=== PATIENT | female | born 1970 | race Caucasian/White ===

== ENCOUNTER 2017-12-06 21:10 | Inpatient (IN) ==
--- NOTE | 2017-12-06 23:14 | Internal Med History&Physical ---
Date of Encounter: 12/07/17 Time of Encounter: 02:20 Internal Medicine - H&P: HPI Chief complaint: DKA Admitted From: Hospital to Hospital Transfer Plans for Post Hospital Care: Home History of present illness: Ms. Wu is a 47 year old female Patient presented to [facility] for elevated blood sugar and nausea. Patient not responding to my questions, thus history obtained from ER report. She at the time of her presentation could not state whether she took her insulin, or if she had eaten. She has had several episodes of DKA, and was hyperventilating during the examination. Lab work showed a blood sugar of 382, lactic acid of 1.4 , and anion gap of 321. VBG showed a pH of 7.1. WBCs were also elevated, and she met SIRS criteria for respiratory rate, heart rate, elevated white count. Blood cultures were drawn, and she was started on vancomycin and ceftriaxone. Chest x-ray showed no consolidations, and UA was negative for nitrites and LEs. She was transferred to [facility] for further care in the ICU. Upon my assessment, patient is tearful, told the nurse prior to my arrival that she was struggling emotionally with bad news about her mother's health. She declined to answer my questions. Appeared in no acute distress. Resting in the hospital bed. Past Med Surg Social Fam HX - Past Medical History Medical history: diabetes, GERD, kidney stones, migraine Additional medical history: syncopal episodes Psychiatric history: anxiety, depression, panic disorder - Past Surgical History Surgical History: , orthopedic, other, other Additional surgical history: right ovary removal. right ankle sx. partial hysterectomy. eye surgery - Social History Smoking Status: Former smoker Smokeless Tobacco Status: No Alcohol use: none Drug use: none Internal Medicine - H&P: Meds Gabapentin [Neurontin] 100 mg PO TID 10/26/14 [History] Insulin ASPART [NovoLOG] 15 unit SQ TIDWM 10/26/14 [History] lamoTRIgine [Lamotrigine] 25 mg PO DAILY 09/23/16 [History] Insulin Glargine,Hum.rec.anlog [Basaglar Kwikpen U-100] 40 units SQ DAILY [History] 3 Allergy/AdvReac Type Severity Reaction Status Date / Time atropine [From ] Allergy Difficulty Verified 12/06/17 19:10 Breathing azithromycin Allergy Swelling Verified 12/06/17 19:10 of Lip/Tongue/Throat Erythromycin Base Allergy Swelling Verified 12/06/17 19:10 of Lip/Tongue/Throat Hyoscyamine [From ] Allergy Difficulty Verified 12/06/17 19:10 Breathing Penicillins [PCN] Allergy Difficulty Verified 12/06/17 19:10 Breathing phenobarbital [From ] Allergy Difficulty Verified 12/06/17 19:10 Breathing promethazine [From Phenergan] Allergy Difficulty Verified 12/06/17 19:10 Breathing scopolamine [From ] Allergy Difficulty Verified 12/06/17 19:10 Breathing aspirin [ASA] AdvReac See Verified 12/06/17 19:10 Comments All Systems PM: A 10-system review of systems was performed and is negative for pertinent findings except as documented above in the HPI. - Constitutional Vitals: Temp Pulse Resp BP Pulse Ox 98.3 F 102 20 136/79 99 12/06/17 23:00 12/06/17 23:00 12/06/17 23:00 12/06/17 23:00 12/06/17 23:00 General appearance: Present: cooperative, no acute distress. Absent: answers questions appropriately Exam: cooperative with exam, but did not answer questions. - Head Head exam: Present: normal inspection - Eye Eye exam: Present: EOMI, normal appearance - Neck Neck exam general surgery: Absent: tenderness - Respiratory Respiratory exam: Present: CTAB. Absent: decreased breath sounds, respiratory distress, wheezes - Cardiovascular Cardiovascular exam: Present: RRR. Absent: diastolic murmur, systolic murmur - GI/Abdominal GI/Abdominal exam: Present: normal bowel sounds, soft. Absent: tenderness - Extremities Exam Extremities exam: Present: warm, radial pulses palpable and symmetrical. Absent : calf tenderness, pedal edema, tenderness - Neurological Exam Neurological exam: Present: no focal deficits, strengths equal and symetr throughout. Absent: motor sensory deficit, facial droop, speech deficit - Skin Skin exam: Present: dry, normal color, warm Internal Med - H&P Results - Labs CBC & Chem 7: 12/07/17 03:35 12/07/17 06:17 - Assessment and plan (1) DKA (diabetic ketoacidoses) Current Visit: Yes Status: Acute Assessment and plan: As evidenced by lab work from [facility]. Will initiate DKA protocol, monitor blood sugars. Will transition to Subq insulin when gap is closed. Continue to monitor. Qualifiers: Qualified Code(s): E10.10 - Type 1 diabetes mellitus with ketoacidosis without coma (2) Leukocytosis Current Visit: Yes Status: Acute Assessment and plan: Patient did meet SIRS criteria at [facility], with elevated heart rate and respiratory rate. Her WBC count was 32. Lactate was not elevated. No obvious source of infection at this time of skin, lung or urine. Patient not having diarrhea. Started on vanco and ceftriaxone. Blood cultures have been drawn. Vitals have improved since arrival. WBC elevation could be explained by DKA, but likely not this high. No fevers noted. Continue antibiotics for now, follow up blood cultures when available. Continue to monitor for worsening signs of infection. Qualifiers: Leukocytosis type: unspecified Qualified Code(s): D72.829 - Elevated white blood cell count, unspecified (3) Vomiting Current Visit: No Status: Resolved Assessment and plan: Secondary to DKA Zofran PRN Qualifiers: Vomiting type: unspecified Vomiting Intractability: non-intractable Nausea presence: with nausea Qualified Code(s): R11.2 - Nausea with vomiting, unspecified (4) DVT prophylaxis Current Visit: Yes Status: Acute Assessment and plan: Heparin subq - Time Spent With Patient Total time spent is greater than 50% in coordination of care (as documented) at patient's floor/unit and/or counseling patient: Greater than 35 minutes
[2017-12-06 23:46] LABS: VBG HCO3 7 mEq/L (21-27); VBG PCO2 21 mmHg (41-51); VBG PH 7.13 pH Units (7.32-7.42); VBG PO2 136 mmHg (25-50)
[2017-12-07 00:02] LABS: Alanine Aminotransferase 9 Units/L (7-52); Albumin 4.3 g/dL (3.5-5.7); Albumin/Globulin Ratio 1.7 (1.1-2.2); Alkaline Phosphatase 59 Units/L (34-104); Aspartate Amino Transferase 13 Units/L (13-39); BUN/Creatinine Ratio 17 (6-26); Bilirubin,Total 0.3 mg/dL (0.3-1.0); Blood Urea Nitrogen 19 mg/dL (6-20); Calcium 7.9 mg/dL (8.6-10.3); Carbon Dioxide 7 mEq/L (23-29); Chloride 111 mEq/L (98-107); Globulin 2.6 g/dL (2.4-3.5); Glucose 176 mg/dL (70-105); Osmolality,Calculated 293 (280-300); Potassium 4.3 mEq/L (3.5-5.1); Sodium 138 mEq/L (136-145); Total Protein 6.9 g/dL (6.4-8.9); eGFR For Non-African Americans 53 (> 60)
[2017-12-07] MEDS ORDERED: Insulin Regular, Human 100 UNIT/ML IV PRN (00:40)
[2017-12-07] MEDS ORDERED: *HR* Dextrose 50 % in Water (Syg) 50 ML SYRINGE IVP PRN (00:40)
[2017-12-07] MEDS ORDERED: D5% in 0.45% NACL w KCl 20 MEQ/1,000 ML MLS IVC ONE (00:46)
[2017-12-07] MEDS: D5% in 0.45% NACL w KCl 20 MEQ/1,000 ML MLS IVC PRN ×2 (00:50→05:16)
[2017-12-07] MEDS ORDERED: Ondansetron 4 MG/2 ML VIAL ONE (02:21)
[2017-12-07] MEDS: Ondansetron 4 MG/2 ML VIAL IVP PRN ×5 (02:29→20:26)
[2017-12-07] MEDS ORDERED: Naloxone 0.4 MG/ML INJ IVP PRN (02:38)
[2017-12-07] MEDS ORDERED: Insulin Human Regular 100 UNIT in 0.9 % Sodium Chloride 100 ML IVC SCH (02:45)
[2017-12-07] MEDS: Insulin Human Regular 100 UNIT in 0.9 % Sodium Chloride 100 ML IVC SCH ×2 (03:00→04:11)
[2017-12-07 03:45] LABS: Mean Platelet Volume 10.8 fL (9.4-12.4); Monocytes % 5.4 %
[2017-12-07 03:47] LABS: Basophils % 0.2 %; Hematocrit 39.6 % (35.3-44.9); Hemoglobin 13.2 g/dL (11.5-15.4); Lymphocytes # 1.2 K/mcL (0.6-4.6); Lymphocytes % 4.8 %; Mean Corpuscular HGB Conc 33.3 g/dL (31.6-35.5); Mean Corpuscular Hemoglobin 30.1 pg (28.0-33.3); Mean Corpuscular Volume 90.2 fL (83.0-100.0); Monocytes # 1.4 K/mcL (0.0-1.3); Neutrophils # 22.7 K/mcL (1.6-8.9); Platelet Count 203 K/mcL (140-400); Red Blood Count 4.39 M/mcL (3.82-4.97); Red Cell Distribution Width 13.4 % (11.5-14.5); Segmented Neutrophils % 88.6 %
[2017-12-07 03:49] LABS: Basophils # 0.1 K/mcL (0.0-0.2)
[2017-12-07 04:07] LABS: BUN/Creatinine Ratio 17 (6-26); Blood Urea Nitrogen 14 mg/dL (6-20); Calcium 7.7 mg/dL (8.6-10.3); Carbon Dioxide 9 mEq/L (23-29); Chloride 114 mEq/L (98-107); Glucose 213 mg/dL (70-105); Osmolality,Calculated 291 (280-300); Potassium 3.7 mEq/L (3.5-5.1); Sodium 137 mEq/L (136-145); eGFR For Non-African Americans > 60 (> 60)
[2017-12-07 04:19] LABS: Platelet Estimate Normal (Normal)
[2017-12-07] MEDS: *HR* Heparin 5,000 UNIT/ML VIAL SQ SCH ×2 (05:16→17:43)
[2017-12-07 07:08] LABS: BUN/Creatinine Ratio 15 (6-26); Blood Urea Nitrogen 12 mg/dL (6-20); Calcium 8.1 mg/dL (8.6-10.3); Carbon Dioxide 15 mEq/L (23-29); Chloride 114 mEq/L (98-107); Glucose 165 mg/dL (70-105); Osmolality,Calculated 287 (280-300); Potassium 3.3 mEq/L (3.5-5.1); Sodium 137 mEq/L (136-145); eGFR For Non-African Americans > 60 (> 60)
[2017-12-07] MEDS ORDERED: Aminoglycoside Consult 1 EACH MC ONE (08:54)
[2017-12-07] MEDS ORDERED: cefTRIAXone 1,000 MG in Water for inj. (sterile) 20 ML 10 ML IVP SCH (09:00)
[2017-12-07 10:17] LABS: BUN/Creatinine Ratio 12 (6-26); Blood Urea Nitrogen 9 mg/dL (6-20); Calcium 8.1 mg/dL (8.6-10.3); Carbon Dioxide 15 mEq/L (23-29); Chloride 113 mEq/L (98-107); Glucose 86 mg/dL (70-105); Osmolality,Calculated 284 (280-300); Potassium 3.4 mEq/L (3.5-5.1); Sodium 138 mEq/L (136-145); eGFR For Non-African Americans > 60 (> 60)
[2017-12-07] MEDS: Insulin LISPRO 300 UNITS/3 ML VIAL SQ SCH ×2 (11:34→16:54)
[2017-12-07] MEDS: Insulin DETEMIR 100 UNIT/ML X5UNITS SQ SCH ×2 (12:52→19:57)
--- NOTE | 2017-12-07 13:00 | Internal Med Progress Note ---
Hospitalist Progress Note - Encounter Date of Encounter: 12/07/17 Time of Encounter: 12:57 - Subjective Interval History: Patient feeling better today. No abdominal pain or chest pain. Complains only of nausea at this time. Does feel hungry. No fever or chills reported overnight. - Exam Vitals: Temp Pulse Resp BP Pulse Ox 97.1 F L 87 18 140/71 100 12/07/17 11:30 12/07/17 12:00 12/07/17 11:30 12/07/17 11:30 12/07/17 11:30 Exam: General: Patient is alert, no acute distress, oriented x 3 Respiratory: Good respiratory effort. Normal breath sounds. No wheezing or crackles. Cardiovascular: Regular rate and rhythm. s1 and s2 normal No clicks, rubs, gallops, or murmurs. No pedal edema Abdomen: Abdomen is soft, nontender. Bowel sounds are present Musculoskeletal: Spontaneously moving all extremities Skin: warm, dry, intact. - Assessment and Plan (1) DKA (diabetic ketoacidoses) Current Visit: Yes Status: Resolved Assessment and Plan: Anion gap has closed. Bicarbonate levels have also improved. We will transition to subcutaneous insulin. Stop DKA protocol. Diabetic diet. Continue to monitor blood sugars closely. Will monitor for another 24 hours. If patient continues to do well and blood sugars are controlled, plan on discharge tomorrow. (2) Leukocytosis Current Visit: Yes Status: Acute Assessment and Plan: Improving. Likely reactive due to diabetic ketoacidosis and possible gastroenteritis. (3) DM type 1 (diabetes mellitus, type 1) Current Visit: Yes Status: Chronic Assessment and Plan: Place patient on diabetic diet and moderate sliding scale. (4) Vomiting Current Visit: Yes Status: Resolved Assessment and Plan: Vomiting has resolved. Patient still has some nausea. Treat symptomatically. - Time Spent with Patient Total time spent is greater than 50% in coordination of care (as documented) at patient's floor/unit and/or counseling patient: Plan of Care Discussed with: patient Internal Medicine: Result - Labs CBC & Chem 7: 12/07/17 03:35 12/07/17 08:59 Labs: Short CBC 12/07/17 Range/Units 03:35 WBC 25.6 H (4.3-11.1) K/mcL Hgb 13.2 (11.5-15.4) g/dL Hct 39.6 (35.3-44.9) % Plt Count 203 (140-400) K/mcL Neutrophils # 22.7 H (1.6-8.9) K/mcL BMP 12/06/17 12/07/17 12/07/17 23:26 03:35 06:17 Sodium 138 137 137 Potassium 4.3 3.7 3.3 L Chloride 111 H 114 H 114 H Carbon Dioxide 7 L* 9 L* 15 L BUN 19 14 12 Creatinine 1.10 0.83 0.80 Glucose 176 H 213 H 165 H Calcium 7.9 L 7.7 L 8.1 L 12/07/17 08:59 Sodium 138 Potassium 3.4 L Chloride 113 H Carbon Dioxide 15 L BUN 9 Creatinine 0.78 Glucose 86 Calcium 8.1 L Liver Function 12/06/17 Range/Units 23:26 Total Bilirubin 0.3 (0.3-1.0) mg/dL AST 13 (13-39) Units/L ALT 9 (7-52) Units/L Alkaline Phosphatase 59 (34-104) Units/L Albumin 4.3 (3.5-5.7) g/dL Consult Discharge Plan - Plan Referrals: Oni Mclain, PROFESSIONAL DEVELOPMENT INSTRUCTOR [Primary Care Provider] - (1) DKA (diabetic ketoacidoses) Qualifiers: Diabetes mellitus type: type 1 Diabetes mellitus complication detail: without coma Qualified Code(s): E10.10 - Type 1 diabetes mellitus with ketoacidosis without coma (2) Leukocytosis Qualifiers: Leukocytosis type: other Qualified Code(s): D72.828 - Other elevated white blood cell count (3) DM type 1 (diabetes mellitus, type 1) Qualifiers: Diabetes mellitus complication status: with hyperglycemia Qualified Code(s): E10.65 - Type 1 diabetes mellitus with hyperglycemia (4) Vomiting Qualifiers: Vomiting type: unspecified Vomiting Intractability: non-intractable Nausea presence: with nausea Qualified Code(s): R11.2 - Nausea with vomiting, unspecified
[2017-12-07] MEDS ORDERED: hydrOXYzine pamoate 25 MG CAPSULE PO PRN (18:49)
[2017-12-07] MEDS: Gabapentin 100 MG CAPSULE PO SCH (19:58)
[2017-12-07] MEDS ORDERED: Insulin LISPRO 300 UNITS/3 ML VIAL SQ SCH (21:00)
[2017-12-08] MEDS ORDERED: Acetaminophen 325 MG TABLET PO PRN (02:10)
[2017-12-08 04:15] LABS: Basophils % 0.2 %; Eosinophils % 0.2 %; Hematocrit 37.6 % (35.3-44.9); Immature Granulocytes % 0.3 % (0-4); Lymphocytes # 1.5 K/mcL (0.6-4.6); Lymphocytes % 12.7 %; Mean Corpuscular HGB Conc 34.6 g/dL (31.6-35.5); Mean Corpuscular Hemoglobin 30.1 pg (28.0-33.3); Mean Platelet Volume 10.9 fL (9.4-12.4); Monocytes # 0.8 K/mcL (0.0-1.3); Monocytes % 6.5 %; Neutrophils # 9.3 K/mcL (1.6-8.9); Platelet Count 196 K/mcL (140-400); Red Blood Count 4.32 M/mcL (3.82-4.97); Red Cell Distribution Width 13.8 % (11.5-14.5); Segmented Neutrophils % 80.1 %
[2017-12-08 04:34] LABS: BUN/Creatinine Ratio 9 (6-26); Blood Urea Nitrogen 6 mg/dL (6-20); Calcium 8.5 mg/dL (8.6-10.3); Carbon Dioxide 18 mEq/L (23-29); Chloride 111 mEq/L (98-107); Glucose 169 mg/dL (70-105); Osmolality,Calculated 288 (280-300); Potassium 3.1 mEq/L (3.5-5.1); Sodium 138 mEq/L (136-145); eGFR For Non-African Americans > 60 (> 60)
[2017-12-08] MEDS: *HR* Heparin 5,000 UNIT/ML VIAL SQ SCH ×2 (06:18→18:21)
[2017-12-08] MEDS: Insulin LISPRO 300 UNITS/3 ML VIAL SQ SCH ×3 (08:09→18:28)
[2017-12-08] MEDS: Gabapentin 100 MG CAPSULE PO SCH ×3 (08:28→22:40)
[2017-12-08] MEDS: Ondansetron 4 MG/2 ML VIAL IVP PRN (08:28)
[2017-12-08] MEDS: lamoTRIgine 100 MG TABLET PO SCH (08:28)
[2017-12-08] MEDS ORDERED: Ringers Solution, Lactated 1,000 ML ONE ×2 (12:34→15:41)
[2017-12-08] MEDS ORDERED: Albumin Human 5% 25.0 GM/500 ML VIAL ONE (12:34)
--- NOTE | 2017-12-08 15:28 | Internal Med Progress Note ---
Hospitalist Progress Note - Encounter Date of Encounter: 12/08/17 Time of Encounter: 15:28 - Subjective Interval History: I evaluated patient earlier today. She was complaining of nausea and vomiting and was not feeling well at all. She also complained of some abdominal pain. Had been tolerating diet well yesterday but has been throwing up since this morning. No Hematemesis or melena. - Exam Vitals: Temp Pulse Resp BP Pulse Ox 99.2 F 81 16 164/87 98 12/08/17 08:00 12/08/17 08:00 12/08/17 08:00 12/08/17 08:00 12/08/17 08:00 Exam: General: Patient is alert, moderate distress, oriented x 3 Respiratory: Good respiratory effort. Normal breath sounds. No wheezing or crackles. Cardiovascular: Regular rate and rhythm. s1 and s2 normal No clicks, rubs, gallops, or murmurs. No pedal edema Abdomen: Abdomen is soft, mildly tender in the epigastric region. Bowel sounds are present Musculoskeletal: Spontaneously moving all extremities Skin: warm, dry, intact. Neuro: Alert oriented x 3 normal cranial nerves, no focal deficits - Assessment and Plan (1) Abdominal pain Current Visit: Yes Status: Acute Assessment and Plan: Patient complaining of abdominal pain along with nausea and vomiting that worsened this morning. We will get CT scan of the abdomen and pelvis. Keep nothing by mouth for now. Treat nausea and vomiting symptomatically. (2) Vomiting Current Visit: Yes Status: Acute Assessment and Plan: Will treat with antiemetics. Keep nothing by mouth. Start IV fluids. (3) DKA (diabetic ketoacidoses) Current Visit: Yes Status: Resolved (4) Leukocytosis Current Visit: Yes Status: Acute Assessment and Plan: Resolved now. Etiology uncertain. Initially suspected of gastroenteritis. Could also be related to DKA. We will follow CT scan of the abdomen and pelvis results. (5) DM type 1 (diabetes mellitus, type 1) Current Visit: Yes Status: Chronic Assessment and Plan: Blood sugars are much better controlled currently. We will continue current insulin regimen every 6 hours based on blood sugars. DVT Prophylaxis: On subcutaneous heparin - Time Spent with Patient Total time spent is greater than 50% in coordination of care (as documented) at patient's floor/unit and/or counseling patient: Internal Medicine: Result - Labs CBC & Chem 7: 12/08/17 03:52 12/08/17 03:52 Labs: Short CBC 12/08/17 Range/Units 03:52 WBC 11.6 H D (4.3-11.1) K/mcL Hgb 13.0 (11.5-15.4) g/dL Hct 37.6 (35.3-44.9) % Plt Count 196 (140-400) K/mcL Neutrophils # 9.3 H (1.6-8.9) K/mcL BMP 12/08/17 03:52 Sodium 138 Potassium 3.1 L Chloride 111 H Carbon Dioxide 18 L BUN 6 Creatinine 0.68 Glucose 169 H Calcium 8.5 L Consult Discharge Plan - Plan Referrals: Oni cMlain, URBAN DESIGNER [Primary Care Provider] - (1) Abdominal pain Qualifiers: Abdominal location: epigastric Qualified Code(s): R10.13 - Epigastric pain (2) Vomiting Qualifiers: Vomiting type: unspecified Vomiting Intractability: non-intractable Nausea presence: with nausea Qualified Code(s): R11.2 - Nausea with vomiting, unspecified (3) DKA (diabetic ketoacidoses) Qualifiers: Diabetes mellitus type: type 1 Diabetes mellitus complication detail: without coma Qualified Code(s): E10.10 - Type 1 diabetes mellitus with ketoacidosis without coma (4) Leukocytosis Qualifiers: Leukocytosis type: other Qualified Code(s): D72.828 - Other elevated white blood cell count (5) DM type 1 (diabetes mellitus, type 1) Qualifiers: Diabetes mellitus complication status: with hyperglycemia Qualified Code(s): E10.65 - Type 1 diabetes mellitus with hyperglycemia
[2017-12-08] MEDS ORDERED: Metoclopramide 10 MG/2 ML VIAL IVP PRN (15:38)
[2017-12-08] MEDS ORDERED: Ringers Solution, Lactated 1,000 ML IVC SCH (15:45)
[2017-12-08] MEDS: Pantoprazole 40 MG VIAL IVP SCH (18:20)
[2017-12-08] MEDS: Insulin DETEMIR 100 UNIT/ML X5UNITS SQ SCH (23:15)
[2017-12-09] MEDS: Insulin LISPRO 300 UNITS/3 ML VIAL SQ SCH ×2 (01:02→05:56)
[2017-12-09] MEDS: *HR* Heparin 5,000 UNIT/ML VIAL SQ SCH (05:44)
[2017-12-09] MEDS: Pantoprazole 40 MG VIAL IVP SCH (05:44)
[2017-12-09] MEDS ORDERED: D5% in Water 1,000 ML IVC PRN (08:43)
[2017-12-09] MEDS ORDERED: Dextrose Gel 15 GM/37.5 ML TUBE PO PRN (08:43)
[2017-12-09] MEDS ORDERED: *HR* Dextrose 50 % in Water (Syg) 50 ML SYRINGE IVP PRN (08:43)
[2017-12-09] MEDS: Gabapentin 100 MG CAPSULE PO SCH (09:26)
[2017-12-09] MEDS: lamoTRIgine 100 MG TABLET PO SCH (09:26)
[2017-12-09 10:02] VITALS: BP 168/83
[2017-12-09] MEDS ORDERED: Potassium Chloride Elixir 20 MEQ/15 ML UDC PO SCH (10:30)
[2017-12-09] MEDS ORDERED: Insulin LISPRO 300 UNITS/3 ML VIAL SQ SCH ×2 (11:30→21:00)
--- NOTE | 2017-12-09 11:53 | Discharge Summary ---
Date of Encounter: 12/09/17 Time of Encounter: 11:55 - Discharge Diagnosis (1) DKA (diabetic ketoacidoses) Priority: Primary Status: Acute Assessment and Plan: Ms. Wu is a 47 year old female. Patient presented to [facility] for elevated blood sugar and nausea. She at the time of her presentation could not state whether she took her insulin, or if she had eaten. She has had several episodes of DKA, and was hyperventilating during the examination. Lab work showed a blood sugar of 382, lactic acid of 1.4, and anion gap of 321. VBG showed a pH of 7.1. WBCs were also elevated, and she met SIRS criteria for respiratory rate , heart rate, elevated white count. Blood cultures were drawn, and she was started on vancomycin and ceftriaxone. She was assessed with DKA and SIRS r/o sepsis. She was started on an insulin drip and broad spectrum antibiotics. She had no clear source of infection and antibiotics were discontinued. She was also started on an insulin drip on admission which was successfully transitioned to subcutaneous insulin once her anion gap closed. She was discharged home in a stable condition. Qualifiers: Diabetes mellitus type: type 1 Diabetes mellitus complication detail: without coma Qualified Code(s): E10.10 - Type 1 diabetes mellitus with ketoacidosis without coma (2) DM type 1 (diabetes mellitus, type 1) Priority: Primary Status: Chronic Assessment and Plan: Blood sugars are much better controlled currently. We will continue current insulin regimen every 6 hours based on blood sugars. Qualifiers: Diabetes mellitus complication status: with hyperglycemia Qualified Code(s) : E10.65 - Type 1 diabetes mellitus with hyperglycemia (3) Vomiting Priority: Primary Status: Acute Qualifiers: Vomiting type: unspecified Vomiting Intractability: non-intractable Nausea presence: with nausea Qualified Code(s): R11.2 - Nausea with vomiting, unspecified (4) Leukocytosis Priority: Primary Status: Acute Qualifiers: Leukocytosis type: other Qualified Code(s): D72.828 - Other elevated white blood cell count (5) Abdominal pain Priority: Primary Status: Acute Qualifiers: Abdominal location: epigastric Qualified Code(s): R10.13 - Epigastric pain Hospital course: Ms. Wu is a 47 year old female - Time Spent with Patient Total time spent providing and/or coordinating discharge services: - Discharge Medications Home Medications: Insulin Glargine,Hum.rec.anlog [Basaglar Kwikpen U-100] 40 units SQ DAILY [History] Atorvastatin Calcium [Lipitor] 20 mg PO HS 12/07/17 [History] Gabapentin [Neurontin] 200 mg PO TID 12/07/17 [History] Insulin ASPART [NovoLOG] 15 units SQ TIDWM 12/07/17 [History] Pantoprazole Sodium [Protonix] 40 mg PO DAILY 12/07/17 [History] hydrOXYzine HCl [Hydroxyzine HCl] 25 mg PO Q8H PRN 12/07/17 [History] lamoTRIgine [Lamotrigine] 150 mg PO DAILY 12/07/17 [History] Allergies/Adverse Reactions: 3 Allergy/AdvReac Type Severity Reaction Status Date / Time atropine [From ] Allergy Difficulty Verified 12/06/17 19:10 Breathing azithromycin Allergy Swelling Verified 12/06/17 19:10 of Lip/Tongue/Throat Erythromycin Base Allergy Swelling Verified 12/06/17 19:10 of Lip/Tongue/Throat Hyoscyamine [From ] Allergy Difficulty Verified 12/06/17 19:10 Breathing Penicillins [PCN] Allergy Difficulty Verified 12/06/17 19:10 Breathing phenobarbital [From ] Allergy Difficulty Verified 12/06/17 19:10 Breathing promethazine [From Phenergan] Allergy Difficulty Verified 12/06/17 19:10 Breathing scopolamine [From ] Allergy Difficulty Verified 12/06/17 19:10 Breathing aspirin [ASA] AdvReac See Verified 12/06/17 19:10 Comments Date of admission: 12/06/17 22:43 Primary care physician: Oni Mclain CNP - Constitutional Vitals: Temp Pulse Resp BP Pulse Ox 98.8 F 87 16 168/83 98 12/09/17 10:00 12/09/17 10:00 12/09/17 10:00 12/09/17 10:00 12/09/17 10:00 General appearance: Present: cooperative, no acute distress. Absent: answers questions appropriately Exam: General: Patient is alert, moderate distress, oriented x 3 Respiratory: Good respiratory effort. Normal breath sounds. No wheezing or crackles. Cardiovascular: Regular rate and rhythm. s1 and s2 normal No clicks, rubs, gallops, or murmurs. No pedal edema Abdomen: Abdomen is soft, mildly tender in the epigastric region. Bowel sounds are present Musculoskeletal: Spontaneously moving all extremities Skin: warm, dry, intact. Neuro: Alert oriented x 3 normal cranial nerves, no focal deficits - Head Head exam: Present: atraumatic, normocephalic - Eye Eye exam: Present: PERRL, conjuntiva pink, sclera anicteric Pupils: Present: PERRL - Neck Neck exam general surgery: Present: supple, trachea midline. Absent: lymphadenopathy - Respiratory Respiratory exam: Present: CTAB. Absent: accessory muscle use, rales, rhonchi, wheezes - Cardiovascular Cardiovascular exam: Present: RRR, +S1, +S2. Absent: diastolic murmur, gallop, rubs, systolic murmur - GI/Abdominal GI/Abdominal exam: Present: normal bowel sounds, soft, no peritoneal signs. Absent: distended, tenderness - Extremities Exam Extremities exam: Present: warm, radial pulses palpable and symmetrical. Absent : calf tenderness, cyanotic, pedal edema - Neurological Exam Neurological exam: Present: CN II-XII intact, oriented X3, no focal deficits. Absent: pronater drift, facial droop, speech deficit - Skin Skin exam: Present: dry, intact - Patient Status Disposition: Home, Self-Care - Discharge Instructions Follow Up With: Oni Mclain CNP [Primary Care Provider] - 12/16/17 9:00 am
== END 2017-12-09 13:25 | disposition home or self-care (01) | DRG 420 ==
LOC: ICNU 22:43 → SUATTDRO 22:43 → 3ANU 12-08 19:30
PROVIDERS: ADMIT Pediatrics; ATTEND Internal Medicine

== ENCOUNTER 2017-12-12 15:57 | Inpatient (IN) ==
--- NOTE | 2017-12-12 18:35 | Internal Med History&Physical ---
Date of Encounter: 12/12/17 Time of Encounter: 18:33 Internal Medicine - H&P: HPI Chief complaint: Nausea, vomiting, malleus Admitted From: Home History of present illness: Ms. Wu is a 47-year-old female with a PMH of DMT1, multiple episodes of DKA, migraines, and nephrolithiasis who presented to [facility] emergency room with a chief complaint of nausea, vomiting, and malaise of one days duration. Patient called EMS, who brought her to the hospital. Patient reported that she had recently been discharged for DKA. She reported that she takes her insulin as prescribed, and took a total of 10 units prior to her arrival. Patient denied having any fever, chills, or night sweats. Upon arrival to [facility], patients vital signs were as follows: Temperature was 98.1, pulse was 109, respiratory rate was 23, blood pressure was 143/83, and O2 sat was 100. Laboratory analysis was significant for an elevated white count of 16.7 with left shift, a carbon dioxide of 9, glucose of 315, beta hydroxybutyric acid greater than 2. Urinalysis demonstrated a urine glucose of 500, urine ketones greater than 160, and a small amount of urine bilirubin. Venous blood gas demonstrated a pH of 7.02, PCO2 of 16, and PO2 of 157. Patient was given IV fluids, as well as an insulin drip. Patient was seen and examined at bedside. She states that she is feeling somewhat drowsy, but states that she feels much better than she did on arrival. She denies any nausea, vomiting, fever, chills, or abdominal pain. She admits to having some epigastric pain which she describes as reflux. She has no further complaints at this time. Past Med Surg Social Fam HX - Past Medical History Medical history: diabetes, GERD, kidney stones, migraine Additional medical history: syncopal episodes Psychiatric history: anxiety, depression, panic disorder - Past Surgical History Surgical History: , orthopedic, other, JOEL/BSO, other Additional surgical history: right ovary removed, right ankle plate/ reconstruction, tonsilectomy - Social History Smoking Status: Current some day smoker Smokeless Tobacco Status: No Alcohol use: none Drug use: none - Family History Mother Living Status: Still Living Hx Family Cancer: Yes (kidney/spine) Brother Living Status: Still Living Hx Family Cardiac Disorders: Yes ([place]) Grandfather Living Status: Hx Family Cancer: Yes (prostate) Internal Medicine - H&P: Meds Insulin Glargine,Hum.rec.anlog [Basaglar Kwikpen U-100] 40 units SQ DAILY [History] Atorvastatin Calcium [Lipitor] 20 mg PO HS 12/07/17 [History] Gabapentin [Neurontin] 200 mg PO TID 12/07/17 [History] Insulin ASPART [NovoLOG] 15 units SQ TIDWM 12/07/17 [History] Pantoprazole Sodium [Protonix] 40 mg PO DAILY 12/07/17 [History] hydrOXYzine HCl [Hydroxyzine HCl] 25 mg PO Q8H PRN 12/07/17 [History] lamoTRIgine [Lamotrigine] 150 mg PO DAILY 12/07/17 [History] 3 Allergy/AdvReac Type Severity Reaction Status Date / Time atropine [From ] Allergy Difficulty Verified 12/06/17 19:10 Breathing azithromycin Allergy Swelling Verified 12/06/17 19:10 of Lip/Tongue/Throat Erythromycin Base Allergy Swelling Verified 12/06/17 19:10 of Lip/Tongue/Throat Hyoscyamine [From ] Allergy Difficulty Verified 12/06/17 19:10 Breathing Penicillins [PCN] Allergy Difficulty Verified 12/06/17 19:10 Breathing phenobarbital [From ] Allergy Difficulty Verified 12/06/17 19:10 Breathing promethazine [From Phenergan] Allergy Difficulty Verified 12/06/17 19:10 Breathing scopolamine [From ] Allergy Difficulty Verified 12/06/17 19:10 Breathing aspirin [ASA] AdvReac See Verified 12/06/17 19:10 Comments All Systems PM: A 10-system review of systems was performed and is negative for pertinent findings except as documented above in the HPI. - Constitutional Constitutional: as per HPI, malaise, weakness, no anorexia, no chills, no fatigue, no falls, no night sweats, no weight gain, no weight loss - EENT Eyes: as per HPI, no loss of vision Ears: as per HPI Nose, mouth and throat: as per HPI - Breasts Breasts: as per HPI - Cardiovascular Cardiovascular ROS IM: as per HPI, no chest pain, no claudication, no diaphoresis, no dyspnea, no dyspnea on exertion, no irregular heart rhythm, no palpitations - Respiratory Respiratory: as per HPI, no cough, no hemoptysis, no wheezing, no stridor - Gastrointestinal Gastrointestinal: as per HPI, heartburn, nausea, no abdominal pain, no vomiting - Genitourinary Genitourinary: as per HPI Menstruation: as per HPI - Musculoskeletal Musculoskeletal ROS IM: as per HPI, no arthralgias - Integumentary Integumentary IM: as per HPI, no rash - Neurological Neurological ROS: as per HPI, no confusion, no focal weakness, no loss of vision - Psychiatric Psychiatric: as per HPI, no anxiety, no irritability - Endocrine Endocrine IM: as per HPI, no excessive sweating, no polyuria - Hematologic/Lymphatic Hematologic/Lymphatic: as per HPI - Allergic/Immunologic Allergic/Immunologic: as per HPI - Constitutional Vitals: Temp Pulse Resp BP Pulse Ox 98.2 F 93 17 171/84 100 12/12/17 17:44 12/12/17 17:44 12/12/17 17:44 12/12/17 17:44 12/12/17 17:44 General appearance: Present: A&O X 3, underweight Exam: Sunken eyes, general malaise - Head Head exam: Present: atraumatic, normocephalic Additional comments: Eyes appear sunken - Eye Eye exam: Present: PERRL, conjuntiva pink, sclera anicteric Pupils: Present: PERRL Additional comments: Eyes appear sunken - Neck Neck exam general surgery: Present: supple, trachea midline. Absent: lymphadenopathy - Respiratory Respiratory exam: Present: CTAB. Absent: accessory muscle use, rales, rhonchi, wheezes - Cardiovascular Cardiovascular exam: Present: RRR, +S1, +S2. Absent: diastolic murmur, gallop, rubs, systolic murmur - GI/Abdominal GI/Abdominal exam: Present: normal bowel sounds, soft, tenderness (Patient has mild epigastric pain, which she describes as heartburn), no peritoneal signs. Absent: distended - Extremities Exam Extremities exam: Present: warm, radial pulses palpable and symmetrical. Absent : calf tenderness, cyanotic, pedal edema - Neurological Exam Neurological exam: Present: CN II-XII intact, oriented X3, no focal deficits. Absent: pronater drift, facial droop, speech deficit - Skin Skin exam: Present: dry, intact - Assessment and plan (1) DKA (diabetic ketoacidoses) Current Visit: No Status: Acute Assessment and plan: Patient presented with elevated glucose and ketosis with nausea, vomiting, and malaise - Patient has had multiple admissions in the past for DKA - She reports that she is compliant on her insulin - Laboratory analysis demonstrated a glucose level of 315, beta hydroxybutyric acid > 2 - Received IV normal saline, was started on an insulin drip Plan: - Patient has been transferred to the ICU; closely monitor vital signs - Continue insulin drip - Monitor electrolytes/vital signs - DKA protocol - We will obtain a.m. labs Qualifiers: Diabetes mellitus type: type 1 Diabetes mellitus complication detail: without coma Qualified Code(s): E10.10 - Type 1 diabetes mellitus with ketoacidosis without coma (2) GERD (gastroesophageal reflux disease) Current Visit: Yes Status: Acute Assessment and plan: Patient reports mild epigastric pain, which she describes as heartburn - PPI Qualifiers: Qualified Code(s): K21.9 - Gastro-esophageal reflux disease without esophagitis (3) Hyperglycemia Current Visit: No Status: Acute Assessment and plan: Accu-Cheks every 2 Currently on DKA protocol (4) Dehydration Current Visit: No Status: Resolved Assessment and plan: Patient appears to have dry mucous membranes - IV fluids (5) DM type 1 (diabetes mellitus, type 1) Current Visit: No Status: Chronic Qualifiers: Diabetes mellitus complication status: with unspecified complications Qualified Code(s): E10.8 - Type 1 diabetes mellitus with unspecified complications (6) Leukocytosis Current Visit: No Status: Acute Assessment and plan: Unknown etiology at this time; no infectious source is suspected at this time - Repeat a.m. labs; continue to monitor for signs of deterioration Qualifiers: Leukocytosis type: other Qualified Code(s): D72.828 - Other elevated white blood cell count (7) DVT prophylaxis Current Visit: No Status: Acute Assessment and plan: Heparin 5000 subcutaneous every 8 - Time Spent With Patient Total time spent is greater than 50% in coordination of care (as documented) at patient's floor/unit and/or counseling patient:
--- NOTE | 2017-12-12 18:38 | Event Note ---
Date of Encounter: 12/12/17 Time of Encounter: 17:45 This is a 47-year-old female with a history of insulin-dependent diabetes mellitus type 1 who was recently admitted to our facility for DKA felt to be due to noncompliance. She initially had a septic workup which proved to be negative. Patient was discharged on a regimen of Levemir 45 units subcutaneous every night plus sliding-scale insulin. She states she has been compliant with her regimen. She last took her long-acting insulin last night as directed. This morning she woke up with nausea and vomiting and presented to another facility with DKA, and an Metabolic acidosis. No obvious infection identified on exam. Patient is hemodynamically stable. Patient is admitted to the ICU. She is continuing with IV fluid resuscitation as well as insulin drip as per protocol. We will continue to monitor and replace electrolytes as necessary. No obvious infection identified at my exam. Exam: Gen. awake alert oriented 3, ill-appearing but in no acute distress Ski is warm and dry with diminished turgor Oropharynx is dry Neck is supple without rigidity Lungs clear bilaterally Regular rate and rhythm Abdomen is soft nontender nondistended with normoactive bowel sounds Ext show no edema Neurological exam is nonfocal Patient will likely be transitioned to SubQ insulin tomorrow if she continues to improve and anion gap Acidosis resolves. Patient also is complaining of heartburn. I do not see evidence of thrush on exam. Will use proton pump inhibitor. Do not suspect this to be cardiac ischemia. All else as per resident note (Dr. Michele). I discussed the case with him and my input will be reflected in his note.
[2017-12-12] MEDS ORDERED: D5% in 0.45% NACL 1,000 ML IVC PRN ×2 (18:40→18:56)
[2017-12-12] MEDS ORDERED: *HR* Dextrose 50 % in Water (Syg) 50 ML SYRINGE IVP PRN ×2 (18:40→18:56)
[2017-12-12] MEDS ORDERED: Insulin Regular, Human 100 UNIT/ML IV PRN ×2 (18:40→18:56)
[2017-12-12] MEDS ORDERED: Naloxone 0.4 MG/ML INJ IVP PRN (18:42)
[2017-12-12] MEDS ORDERED: Insulin Human Regular 100 UNIT in 0.9 % Sodium Chloride 100 ML IVC SCH ×2 (18:45→19:00)
[2017-12-12 19:37] LABS: Basophils # 0.1 K/mcL (0.0-0.2); Basophils % 0.3 %; Eosinophils % 0.1 %; Hematocrit 42.7 % (35.3-44.9); Hemoglobin 13.9 g/dL (11.5-15.4); Lymphocytes # 2.1 K/mcL (0.6-4.6); Lymphocytes % 11.7 %; Mean Corpuscular HGB Conc 32.6 g/dL (31.6-35.5); Mean Corpuscular Hemoglobin 29.4 pg (28.0-33.3); Mean Corpuscular Volume 90.5 fL (83.0-100.0); Mean Platelet Volume 9.9 fL (9.4-12.4); Monocytes # 1.1 K/mcL (0.0-1.3); Monocytes % 6.4 %; Neutrophils # 14.3 K/mcL (1.6-8.9); Platelet Count 369 K/mcL (140-400); Red Blood Count 4.72 M/mcL (3.82-4.97); Red Cell Distribution Width 13.7 % (11.5-14.5); Segmented Neutrophils % 80.5 %
[2017-12-12 19:41] LABS: VBG HCO3 6 mEq/L (21-27); VBG PCO2 19 mmHg (41-51); VBG PO2 142 mmHg (25-50)
[2017-12-12 19:54] LABS: Albumin 4.1 g/dL (3.5-5.7); Albumin/Globulin Ratio 1.8 (1.1-2.2); Bilirubin,Direct 0.1 mg/dL (0.0-0.2); Bilirubin,Indirect 0.3 mg/dL (0.0-1.2); Bilirubin,Total 0.4 mg/dL (0.3-1.0); Globulin 2.3 g/dL (2.4-3.5); Total Protein 6.4 g/dL (6.4-8.9)
[2017-12-12 19:56] LABS: BUN/Creatinine Ratio 12 (6-26); Blood Urea Nitrogen 9 mg/dL (6-20); Calcium 8.3 mg/dL (8.6-10.3); Carbon Dioxide 7 mEq/L (23-29); Chloride 110 mEq/L (98-107); Glucose 151 mg/dL (70-105); Magnesium 1.7 mg/dL (1.6-2.6); Osmolality,Calculated 286 (280-300); Potassium 3.8 mEq/L (3.5-5.1); Sodium 137 mEq/L (136-145); eGFR For Non-African Americans > 60 (> 60)
[2017-12-12] MEDS: D5% in 0.45% NACL w KCl 20 MEQ/1,000 ML MLS IVC PRN ×2 (20:01→23:34)
[2017-12-12] MEDS: Insulin Human Regular 100 UNIT in 0.9 % Sodium Chloride 100 ML IVC SCH ×2 (20:06→20:23)
[2017-12-12] MEDS ORDERED: Acetaminophen 325 MG TABLET PO PRN (20:11)
[2017-12-12] MEDS: 0.45 % Sodium Chloride w/KCl 20 MEQ/1,000 ML MLS IVC SCH ×3 (20:20→23:39)
[2017-12-12 23:12] LABS: VBG HCO3 13 mEq/L (21-27); VBG PCO2 27 mmHg (41-51); VBG PH 7.29 pH Units (7.32-7.42); VBG PO2 182 mmHg (25-50)
[2017-12-12 23:29] LABS: BUN/Creatinine Ratio 10 (6-26); Blood Urea Nitrogen 7 mg/dL (6-20); Calcium 7.8 mg/dL (8.6-10.3); Carbon Dioxide 13 mEq/L (23-29); Chloride 113 mEq/L (98-107); Glucose 159 mg/dL (70-105); Osmolality,Calculated 281 (280-300); Potassium 3.3 mEq/L (3.5-5.1); Sodium 135 mEq/L (136-145); eGFR For Non-African Americans > 60 (> 60)
[2017-12-13] MEDS: 0.45 % Sodium Chloride w/KCl 20 MEQ/1,000 ML MLS IVC SCH ×3 (01:01→04:12)
[2017-12-13] MEDS: D5% in 0.45% NACL w KCl 20 MEQ/1,000 ML MLS IVC PRN (03:44)
[2017-12-13 04:49] LABS: BUN/Creatinine Ratio 8 (6-26); Blood Urea Nitrogen 5 mg/dL (6-20); Carbon Dioxide 12 mEq/L (23-29); Chloride 115 mEq/L (98-107); Glucose 189 mg/dL (70-105); Osmolality,Calculated 282 (280-300); Potassium 4.1 mEq/L (3.5-5.1); Sodium 135 mEq/L (136-145); eGFR For Non-African Americans > 60 (> 60)
[2017-12-13 04:50] LABS: Magnesium 1.5 mg/dL (1.6-2.6); Phosphorous 1.3 mg/dL (2.7-4.5)
[2017-12-13] MEDS ORDERED: Insulin DETEMIR 100 UNIT/ML X5UNITS SQ ONE (05:11)
[2017-12-13] MEDS ORDERED: D5% in Water 1,000 ML IVC PRN ×2 (05:11→06:23)
[2017-12-13] MEDS ORDERED: *HR* Dextrose 50 % in Water (Syg) 50 ML SYRINGE IVP PRN ×2 (05:11→06:23)
[2017-12-13] MEDS ORDERED: Dextrose Gel 15 GM/37.5 ML TUBE PO PRN ×4 (05:11→06:23)
[2017-12-13] MEDS ORDERED: *HR* Heparin 5,000 UNIT/ML VIAL SQ SCH (06:00)
[2017-12-13] MEDS ORDERED: Acetaminophen 325 MG TABLET PO PRN (06:23)
[2017-12-13] MEDS ORDERED: Naloxone 0.4 MG/ML INJ IVP PRN (06:23)
[2017-12-13 07:05] LABS: Estimated Average Glucose 240 mg/dl
[2017-12-13] MEDS ORDERED: Insulin LISPRO 300 UNITS/3 ML VIAL SQ SCH ×4 (07:30→21:00)
[2017-12-13] MEDS: Insulin LISPRO 300 UNITS/3 ML VIAL SQ SCH ×6 (08:07→16:54)
[2017-12-13] MEDS: Metoclopramide 10 MG/2 ML VIAL IVP SCH ×2 (09:27→16:57)
--- NOTE | 2017-12-13 09:52 | Internal Med Progress Note ---
Hospitalist Progress Note - Encounter Date of Encounter: 12/13/17 Time of Encounter: 08:40 - Subjective Interval History: Ms. Wu is a 47-year-old female with a PMH of DMT1, multiple episodes of DKA, migraines, and nephrolithiasis who presented to [facility] emergency room with a chief complaint of nausea, vomiting, and malaise of one days duration. Patient called EMS, who brought her to the hospital. Patient reported that she had recently been discharged for DKA. She reported that she takes her insulin as prescribed, and took a total of 10 units prior to her arrival. Patient denied having any fever, chills, or night sweats. Upon arrival to [facility], patients vital signs were as follows: Temperature was 98.1, pulse was 109, respiratory rate was 23, blood pressure was 143/83, and O2 sat was 100. Laboratory analysis was significant for an elevated white count of 16.7 with left shift, a carbon dioxide of 9, glucose of 315, beta hydroxybutyric acid greater than 2. Urinalysis demonstrated a urine glucose of 500, urine ketones greater than 160, and a small amount of urine bilirubin. Venous blood gas demonstrated a pH of 7.02, PCO2 of 16, and PO2 of 157. Patient was given IV fluids, as well as an insulin drip. Patient was seen and examined at bedside. She states that she is feeling somewhat drowsy, but states that she feels much better than she did on arrival. She denies any nausea, vomiting, fever, chills, or abdominal pain. She admits to having some epigastric pain which she describes as reflux. She has no further complaints at this time. 12/13: Patient DKA is resolving. Overnight she was transitioned to subcutaneous insulin. This morning patient states she feels much better. She is still having some nausea. Chest pain or shortness of breath. No fevers or chills. She has tolerated some of her breakfast. Other than that mentioned above a 10 point review of systems is negative. - Exam Vitals: Temp Pulse Resp BP Pulse Ox 98.5 F 93 17 148/76 100 12/13/17 07:30 12/13/17 08:00 12/13/17 08:00 12/13/17 08:00 12/13/17 08:00 Exam: General: She is ill-appearing but awake alert and oriented 3. Pleasant and conversant. Skin is pale, dry, warm Oropharynx is moist Lungs are clear bilaterally Regular rate and rhythm Abdomen is soft nontender with normoactive bowel sounds Extremities show no edema Neurological nonfocal - Assessment and Plan (1) DKA (diabetic ketoacidoses) Current Visit: No Status: Acute Assessment and Plan: She was placed on sliding scale insulin overnight. We will continue a basal bolus insulin and monitor. We will keep in hospital an additional day given the fact that this is recurrent DKA. As her acidosis persisted this morning I will repeat a BMP now. Continue with IV fluids and supportive care. It is unclear what precipitated DKA at this time. Patient states she has been compliant with her insulin regimen. She does however states she is under a lot of stress, her mom has stage IV cancer. (2) GERD (gastroesophageal reflux disease) Current Visit: Yes Status: Acute Assessment and Plan: He is on proton pump inhibitor (3) Vomiting Current Visit: No Status: Acute Assessment and Plan: Patient may have gastroparesis. I will try Reglan. (4) Hypomagnesemia Current Visit: Yes Status: Acute Assessment and Plan: Replace, monitor (5) DVT prophylaxis Current Visit: No Status: Acute Assessment and Plan: On subcutaneous heparin - Time Spent with Patient Total time spent is greater than 50% in coordination of care (as documented) at patient's floor/unit and/or counseling patient: Internal Medicine: Result - Labs CBC & Chem 7: 12/12/17 19:20 12/13/17 04:06 Labs: Short CBC 12/12/17 Range/Units 19:20 WBC 17.7 H (4.3-11.1) K/mcL Hgb 13.9 (11.5-15.4) g/dL Hct 42.7 (35.3-44.9) % Plt Count 369 (140-400) K/mcL Neutrophils # 14.3 H (1.6-8.9) K/mcL BMP 12/12/17 12/12/17 12/13/17 19:20 22:51 04:06 Sodium 137 135 L 135 L Potassium 3.8 3.3 L 4.1 Chloride 110 H 113 H 115 H Carbon Dioxide 7 L* 13 L 12 L BUN 9 7 5 L Creatinine 0.76 0.70 0.61 Glucose 151 H 159 H 189 H Calcium 8.3 L 7.8 L 8.0 L Liver Function 12/12/17 Range/Units 19:20 Total Bilirubin 0.4 (0.3-1.0) mg/dL Direct Bilirubin 0.1 (0.0-0.2) mg/dL AST 9 L (13-39) Units/L ALT 9 (7-52) Units/L Alkaline Phosphatase 72 (34-104) Units/L Albumin 4.1 (3.5-5.7) g/dL Consult Discharge Plan - Plan Referrals: Oni Mclain, [employer] [Primary Care Provider] - (1) DKA (diabetic ketoacidoses) Qualifiers: Diabetes mellitus type: type 1 Diabetes mellitus complication detail: without coma Qualified Code(s): E10.10 - Type 1 diabetes mellitus with ketoacidosis without coma (2) GERD (gastroesophageal reflux disease) Qualifiers: Qualified Code(s): K21.9 - Gastro-esophageal reflux disease without esophagitis (3) Vomiting Qualifiers: Vomiting type: unspecified Vomiting Intractability: non-intractable Nausea presence: with nausea Qualified Code(s): R11.2 - Nausea with vomiting, unspecified
[2017-12-13 11:11] LABS: BUN/Creatinine Ratio 7 (6-26); Blood Urea Nitrogen 4 mg/dL (6-20); Calcium 8.7 mg/dL (8.6-10.3); Carbon Dioxide 14 mEq/L (23-29); Chloride 114 mEq/L (98-107); Glucose 66 mg/dL (70-105); Osmolality,Calculated 279 (280-300); Potassium 4.3 mEq/L (3.5-5.1); Sodium 137 mEq/L (136-145); eGFR For Non-African Americans > 60 (> 60)
[2017-12-13] MEDS: 0.9 % Sodium Chloride w KCl 20 MEQ/1,000 ML MLS IVC SCH (14:56)
[2017-12-13] MEDS: *HR* Heparin 5,000 UNIT/ML VIAL SQ SCH (16:56)
[2017-12-14] MEDS: Metoclopramide 10 MG/2 ML VIAL IVP SCH ×2 (01:15→08:07)
[2017-12-14] MEDS: 0.9 % Sodium Chloride w KCl 20 MEQ/1,000 ML MLS IVC SCH (01:48)
[2017-12-14 03:27] LABS: Basophils % 0.5 %; Eosinophils # 0.5 K/mcL (0.0-0.6); Eosinophils % 6.5 %; Hematocrit 33.6 % (35.3-44.9); Immature Granulocytes % 0.5 % (0-4); Lymphocytes # 2.8 K/mcL (0.6-4.6); Lymphocytes % 38.3 %; Mean Corpuscular HGB Conc 34.5 g/dL (31.6-35.5); Mean Corpuscular Hemoglobin 29.7 pg (28.0-33.3); Mean Corpuscular Volume 85.9 fL (83.0-100.0); Mean Platelet Volume 9.7 fL (9.4-12.4); Monocytes # 0.7 K/mcL (0.0-1.3); Monocytes % 9.9 %; Neutrophils # 3.3 K/mcL (1.6-8.9); Platelet Count 282 K/mcL (140-400); Red Blood Count 3.91 M/mcL (3.82-4.97); Red Cell Distribution Width 13.7 % (11.5-14.5); Segmented Neutrophils % 44.3 %
[2017-12-14 03:29] LABS: Hemoglobin 11.6 g/dL (11.5-15.4)
[2017-12-14 03:48] LABS: BUN/Creatinine Ratio 7 (6-26); Blood Urea Nitrogen 4 mg/dL (6-20); Carbon Dioxide 23 mEq/L (23-29); Chloride 111 mEq/L (98-107); Glucose 116 mg/dL (70-105); Osmolality,Calculated 290 (280-300); Potassium 3.1 mEq/L (3.5-5.1); Sodium 141 mEq/L (136-145); eGFR For Non-African Americans > 60 (> 60)
[2017-12-14] MEDS: *HR* Heparin 5,000 UNIT/ML VIAL SQ SCH (06:26)
[2017-12-14 07:29] VITALS: BP 152/84
[2017-12-14] MEDS: Insulin LISPRO 300 UNITS/3 ML VIAL SQ SCH ×2 (08:07→08:08)
--- NOTE | 2017-12-14 08:57 | Discharge Summary ---
- NOTES TO OUTPATIENT PROVIDER Notes to Outpatient Provider: Patient had her second admission for DKA in a week. Need close follow-up. She states she has been compliant with medications. She does have an appointment with an watchmaking teacher. Date of Encounter: 12/14/17 Time of Encounter: 08:54 - Discharge Diagnosis (1) DKA (diabetic ketoacidoses) Priority: Primary Status: Acute Qualifiers: Diabetes mellitus type: type 1 Diabetes mellitus complication detail: without coma Qualified Code(s): E10.10 - Type 1 diabetes mellitus with ketoacidosis without coma (2) GERD (gastroesophageal reflux disease) Priority: Secondary Status: Acute Qualifiers: Esophagitis presence: without esophagitis Qualified Code(s): K21.9 - Gastro -esophageal reflux disease without esophagitis (3) Vomiting Priority: Secondary Status: Acute Qualifiers: Vomiting type: unspecified Vomiting Intractability: non-intractable Nausea presence: with nausea Qualified Code(s): R11.2 - Nausea with vomiting, unspecified (4) Hypomagnesemia Priority: Secondary Status: Acute (5) DVT prophylaxis Priority: Secondary Status: Acute Hospital course: Ms. Wu is a 47-year-old female with a PMH of DMT1, multiple episodes of DKA, migraines, and nephrolithiasis who presented to [facility] emergency room with a chief complaint of nausea, vomiting, and malaise of one days duration. Patient called EMS, who brought her to the hospital. Patient reported that she had recently been discharged for DKA. She reported that she takes her insulin as prescribed, and took a total of 10 units prior to her arrival. Patient denied having any fever, chills, or night sweats. Upon arrival to [facility], patients vital signs were as follows: Temperature was 98.1, pulse was 109, respiratory rate was 23, blood pressure was 143/83, and O2 sat was 100. Laboratory analysis was significant for an elevated white count of 16.7 with left shift, a carbon dioxide of 9, glucose of 315, beta hydroxybutyric acid greater than 2. Urinalysis demonstrated a urine glucose of 500, urine ketones greater than 160, and a small amount of urine bilirubin. Venous blood gas demonstrated a pH of 7.02, PCO2 of 16, and PO2 of 157. Patient was given IV fluids, as well as an insulin drip. Patient was seen and examined at bedside. She states that she is feeling somewhat drowsy, but states that she feels much better than she did on arrival. She denies any nausea, vomiting, fever, chills, or abdominal pain. She admits to having some epigastric pain which she describes as reflux. She has no further complaints at this time. 12/13: Patient DKA is resolving. Overnight she was transitioned to subcutaneous insulin. This morning patient states she feels much better. She is still having some nausea. Chest pain or shortness of breath. No fevers or chills. She has tolerated some of her breakfast. 12/13: Patient did well. She resumed her normal insulin regimen of Levemir 40 units subcutaneous in the morning, sliding scale and 5 units regular with meals. Sugar control improved. She did have some nausea for which she was treated with Reglan. She may have gastroparesis based on her symptoms. I did send her home with a short supply of Reglan until follow-up with primary care provider. She was otherwise doing well and deemed stable for discharge. Discharge discussed with: patient - Time Spent with Patient Total time spent providing and/or coordinating discharge services: Greater than 30 minutes (36 minutes spent on discharge and coordination of care) - Discharge Medications Home Medications: Insulin Glargine,Hum.rec.anlog [Basaglar Kwikpen U-100] 40 units SQ DAILY [History] Atorvastatin Calcium [Lipitor] 20 mg PO HS 12/07/17 [History] Gabapentin [Neurontin] 200 mg PO TID 12/07/17 [History] Insulin ASPART [NovoLOG] 15 units SQ TIDWM 12/07/17 [History] Pantoprazole Sodium [Protonix] 40 mg PO DAILY 12/07/17 [History] hydrOXYzine HCl [Hydroxyzine HCl] 25 mg PO Q8H PRN 12/07/17 [History] lamoTRIgine [Lamotrigine] 150 mg PO DAILY 12/07/17 [History] Allergies/Adverse Reactions: 3 Allergy/AdvReac Type Severity Reaction Status Date / Time atropine [From ] Allergy Difficulty Verified 12/06/17 19:10 Breathing azithromycin Allergy Swelling Verified 12/06/17 19:10 of Lip/Tongue/Throat Erythromycin Base Allergy Swelling Verified 12/06/17 19:10 of Lip/Tongue/Throat Hyoscyamine [From ] Allergy Difficulty Verified 12/06/17 19:10 Breathing Penicillins [PCN] Allergy Difficulty Verified 12/06/17 19:10 Breathing phenobarbital [From ] Allergy Difficulty Verified 12/06/17 19:10 Breathing promethazine [From Phenergan] Allergy Difficulty Verified 12/06/17 19:10 Breathing scopolamine [From ] Allergy Difficulty Verified 12/06/17 19:10 Breathing aspirin [ASA] AdvReac See Verified 12/06/17 19:10 Comments Date of admission: 12/12/17 17:42 Primary care physician: Oni Mclain CNP Consults: 12/12/17 18:56 Consult for Pharmacy Education [CONS] Routine Reason for Consult: Recurrent DKA Call Completed: No Consult to President And Ceo [CONS] Routine Reason for SW Consult: Repeat DKA admissions Discharging clinician: Miguelito Gray Anticipated date of discharge: 12/14/17 - Constitutional Vitals: Temp Pulse Resp BP Pulse Ox 98.2 F 93 19 152/84 98 12/14/17 07:24 12/14/17 07:24 12/14/17 07:24 12/14/17 07:24 12/14/17 07:24 General appearance: Present: A&O X 3, underweight Exam: General: NAD, awake alert and oriented 3. Pleasant and conversant. Skin is pale, dry, warm Oropharynx is moist Lungs are clear bilaterally Regular rate and rhythm Abdomen is soft nontender with normoactive bowel sounds Extremities show no edema Neurological nonfocal - Patient Status Disposition: Home, Self-Care Condition: Good Functional capacity at discharge: independent ambulation Overall status at discharge: patient is back to baseline - Discharge Instructions Follow Up With: Oni Mclain CNP [Primary Care Provider] - - Diet and Activity Activity: increase activity as tolerated Diet: advance to your usual diet
[2017-12-14] MEDS ORDERED: Insulin DETEMIR 100 UNIT/ML X5UNITS SQ SCH (09:00)
== END 2017-12-14 11:15 | disposition home or self-care (01) | DRG 420 ==
LOC: ICNU 17:42 → 2NENU 12-13 10:06
PROVIDERS: ADMIT Internal Medicine; ATTEND Internal Medicine

== ENCOUNTER 2019-11-26 19:39 | Observation (INO) ==
[2019-11-26] MEDS ORDERED: *HR* Dextrose 50 % in Water (Vial) 50 ML VIAL IVP PRN (23:42)
[2019-11-26] MEDS ORDERED: D5% in 0.45% NACL 1,000 ML IVC PRN (23:42)
[2019-11-26] MEDS ORDERED: 0.45 % Sodium Chloride w/KCl 20 MEQ/1,000 ML MLS IVC SCH (23:45)
[2019-11-26] MEDS ORDERED: Insulin Human Regular 100 UNIT in 0.9 % Sodium Chloride 100 ML IVC SCH (23:45)
[2019-11-26] MEDS ORDERED: 0.9 % Sodium Chloride 1,000 ML IVC SCH (23:45)
[2019-11-27 00:14] LABS: Adenovirus Not Detected (Not Detect); Bordetella Pertussis Not Detected (Not Detect); Chlamydophila pneumoniae Not Detected (Not Detect); Coronavirus 229E Not Detected (Not Detect); Coronavirus HKU1 Not Detected (Not Detect); Coronavirus NL63 Not Detected (Not Detect); Coronavirus OC43 Not Detected (Not Detect); Human Metapneumovirus Not Detected (Not Detect); Human Rhinovirus/Enterovirus Not Detected (Not Detect); Influenza A Subtype 2009 H1 Not Detected (Not Detect); Influenza B Not Detected (Not Detect); Mycoplasma pneumoniae Not Detected (Not Detect); Parainfluenza Virus 1 Not Detected (Not Detect); Parainfluenza Virus 2 Not Detected (Not Detect); Parainfluenza Virus 3 Not Detected (Not Detect); Parainfluenza Virus 4 Not Detected (Not Detect); Respiratory Syncytial Virus Not Detected (Not Detect); SARS-CoV-2 Not Detected (Not Detect)
[2019-11-27] MEDS ORDERED: Ondansetron ODT 4 MG TAB.RAPDIS SL PRN (01:49)
[2019-11-27 02:00] LABS: Hematocrit 36.1 % (35.3-44.9); Hemoglobin 11.1 g/dL (11.5-15.4); Mean Corpuscular HGB Conc 30.7 g/dL (31.6-35.5); Mean Corpuscular Hemoglobin 26.6 pg (28.0-33.3); Mean Corpuscular Volume 86.4 fL (83.0-100.0); Mean Platelet Volume 10.9 fL (9.4-12.4); Platelet Count 384 K/mcL (140-400); Red Blood Count 4.18 M/mcL (3.82-4.97); Red Cell Distribution Width 14.4 % (11.5-14.5); White Blood Count 18.4 K/mcL (4.3-11.1)
[2019-11-27] MEDS: D5% in 0.45% NACL w KCl 20 MEQ/1,000 ML MLS IVC PRN ×2 (02:08→06:30)
[2019-11-27 02:16] LABS: Calcium 8.8 mg/dL (8.6-10.3); Carbon Dioxide 17 mEq/L (23-29); Chloride 105 mEq/L (98-107); Glucose 177 mg/dL (70-105); Magnesium 1.6 mg/dL (1.6-2.6); Sodium 135 mEq/L (136-145); eGFR For African Americans > 60 (> 60); eGFR For Non-African Americans 59 (> 60)
[2019-11-27 02:17] LABS: Calcium 8.6 mg/dL (8.6-10.3); Carbon Dioxide 17 mEq/L (23-29); Chloride 105 mEq/L (98-107); Glucose 175 mg/dL (70-105); Sodium 136 mEq/L (136-145); eGFR For African Americans > 60 (> 60); eGFR For Non-African Americans 59 (> 60)
[2019-11-27 02:21] LABS: BUN/Creatinine Ratio 22 (6-26); Blood Urea Nitrogen 22 mg/dL (6-20); Osmolality,Calculated 290 (280-300)
[2019-11-27 02:22] LABS: BUN/Creatinine Ratio 22 (6-26); Blood Urea Nitrogen 22 mg/dL (6-20); Osmolality,Calculated 288 (280-300)
[2019-11-27 02:22] LABS: VBG HCO3 19 mEq/L (21-27); VBG PCO2 33 mmHg (41-51); VBG PH 7.36 pH Units (7.32-7.42); VBG PO2 143 mmHg (25-50)
[2019-11-27 02:27] LABS: Lymphocytes # 2.6 K/mcL (0.6-4.6); Monocytes # 0.4 K/mcL (0.0-1.3); Neutrophils # 15.5 K/mcL (1.6-8.9)
[2019-11-27] MEDS: *HR* Heparin 5,000 UNIT/ML VIAL SQ SCH ×3 (05:08→20:24)
[2019-11-27 05:17] LABS: BUN/Creatinine Ratio 22 (6-26); Blood Urea Nitrogen 20 mg/dL (6-20); Calcium 8.6 mg/dL (8.6-10.3); Carbon Dioxide 19 mEq/L (23-29); Chloride 108 mEq/L (98-107); Glucose 69 mg/dL (70-105); Osmolality,Calculated 285 (280-300); Potassium 3.7 mEq/L (3.5-5.1); Sodium 137 mEq/L (136-145); eGFR For African Americans > 60 (> 60); eGFR For Non-African Americans > 60 (> 60)
[2019-11-27] MEDS ORDERED: D5% in Water 1,000 ML IVC PRN (07:55)
[2019-11-27] MEDS ORDERED: Dextrose Gel 15 GM/37.5 ML TUBE PO PRN ×2 (07:55)
[2019-11-27] MEDS ORDERED: Insulin DETEMIR 100 UNIT/ML X5UNITS SQ ONE (07:56)
[2019-11-27 08:30] LABS: Basophils % 0.3 %; Eosinophils % 0.2 %; Hematocrit 31.5 % (35.3-44.9); Hemoglobin 10.1 g/dL (11.5-15.4); Immature Granulocytes % 0.4 % (0-4); Lymphocytes # 2.3 K/mcL (0.6-4.6); Lymphocytes % 15.5 %; Mean Corpuscular HGB Conc 32.1 g/dL (31.6-35.5); Mean Corpuscular Hemoglobin 26.8 pg (28.0-33.3); Mean Corpuscular Volume 83.6 fL (83.0-100.0); Mean Platelet Volume 10.7 fL (9.4-12.4); Monocytes # 1.3 K/mcL (0.0-1.3); Monocytes % 8.6 %; Neutrophils # 10.9 K/mcL (1.6-8.9); Platelet Count 345 K/mcL (140-400); Red Blood Count 3.77 M/mcL (3.82-4.97); Red Cell Distribution Width 14.6 % (11.5-14.5); White Blood Count 14.5 K/mcL (4.3-11.1)
[2019-11-27 08:45] LABS: BUN/Creatinine Ratio 18 (6-26); Blood Urea Nitrogen 16 mg/dL (6-20); Calcium 8.4 mg/dL (8.6-10.3); Carbon Dioxide 19 mEq/L (23-29); Chloride 108 mEq/L (98-107); Glucose 168 mg/dL (70-105); Osmolality,Calculated 287 (280-300); Sodium 136 mEq/L (136-145); eGFR For African Americans > 60 (> 60); eGFR For Non-African Americans > 60 (> 60)
[2019-11-27] MEDS: Insulin LISPRO 300 UNITS/3 ML VIAL SQ SCH ×3 (08:50→16:34)
[2019-11-27] MEDS ORDERED: Acetaminophen 325 MG TABLET PO PRN (09:59)
[2019-11-27] MEDS ORDERED: Insulin Regular, Human 100 UNIT/ML SQ ONE (11:39)
[2019-11-27] MEDS ORDERED: Insulin LISPRO 300 UNITS/3 ML VIAL SQ ONE (11:45)
[2019-11-27] MEDS: lamoTRIgine 100 MG TABLET PO SCH (12:14)
[2019-11-27 14:47] LABS: Bilirubin,Urine Negative (Negative); Blood,Urine Trace-intact (Negative); Clarity,Urine Clear (Clear); Color,Urine Yellow (Yellow); Glucose,Urine (UA) 500 mg/dL (Normal); Ketones,Urine 40 mg/dL (Negative); Leukocyte Esterase,Urine Negative (Negative); Nitrite,Urine Negative (Negative); Protein,Urine Negative (Neg-Trace); Specific Gravity,Urine 1.025 (1.010-1.025); Urobilinogen,Urine Normal (Normal)
[2019-11-27 14:57] LABS: RBC,Urine 0-3 per hpf (0-3); Squamous Epithelial Cell,Urine Few per hpf (None-Few); WBC,Urine 0-3 per hpf (0-3)
[2019-11-27] MEDS ORDERED: Insulin LISPRO 300 UNITS/3 ML VIAL SQ SCH ×2 (16:30→21:00)
[2019-11-27] MEDS: Gabapentin 300 MG CAPSULE PO SCH (20:23)
[2019-11-27] MEDS ORDERED: Insulin DETEMIR 100 UNIT/ML X5UNITS SQ SCH (21:00)
[2019-11-28 02:46] LABS: BUN/Creatinine Ratio 18 (6-26); Blood Urea Nitrogen 14 mg/dL (6-20); Calcium 8.6 mg/dL (8.6-10.3); Carbon Dioxide 23 mEq/L (23-29); Chloride 109 mEq/L (98-107); Glucose 51 mg/dL (70-105); Osmolality,Calculated 284 (280-300); Potassium 3.9 mEq/L (3.5-5.1); Sodium 138 mEq/L (136-145); eGFR For African Americans > 60 (> 60); eGFR For Non-African Americans > 60 (> 60)
[2019-11-28] MEDS: *HR* Heparin 5,000 UNIT/ML VIAL SQ SCH (05:07)
[2019-11-28 07:01] VITALS: BP 117/74
[2019-11-28] MEDS: Insulin LISPRO 300 UNITS/3 ML VIAL SQ SCH (07:13)
[2019-11-28] MEDS: lamoTRIgine 100 MG TABLET PO SCH (07:39)
[2019-11-28] MEDS: Gabapentin 300 MG CAPSULE PO SCH (07:39)
== END 2019-11-28 10:49 | disposition home or self-care (01) ==
LOC: CDU → SUATTDRO 22:42 → 2NNU 11-27 00:23
PROVIDERS: ADMIT Internal Medicine; ATTEND Family Medicine

== ENCOUNTER 2020-10-25 22:48 | Inpatient (IN) ==
[2020-10-26] MEDS ORDERED: Acetaminophen 325 MG TABLET PO PRN (01:25)
[2020-10-26] MEDS ORDERED: Naloxone 0.4 MG/ML INJ IVP PRN (01:25)
[2020-10-26] MEDS ORDERED: Ondansetron 4 MG/2 ML VIAL IVP PRN (01:25)
[2020-10-26] MEDS ORDERED: Perflutren Lipid Microsphere 1.3 ML in 0.9 % Sodium Chloride 8.7 ML IVP PRN (01:28)
[2020-10-26] MEDS ORDERED: D5% in Water 1,000 ML IVC PRN (01:29)
[2020-10-26] MEDS ORDERED: Dextrose Gel 15 GM/37.5 ML TUBE PO PRN ×2 (01:29)
[2020-10-26] MEDS ORDERED: Heparin 25,000UNIT/250ML 1/2NS 25,000 UNIT/250 ML IV.SOLN IVC SCH (01:30)
[2020-10-26] MEDS ORDERED: *HR* Heparin 5,000 UNIT/ML VIAL IVP PRN ×2 (01:30)
[2020-10-26 02:11] LABS: Basophils % 0.1 %; Hematocrit 38.8 % (35.3-44.9); Hemoglobin 12.8 g/dL (11.5-15.4); Immature Granulocytes % 0.8 % (0-4); Lymphocytes # 2.2 K/mcL (0.6-4.6); Lymphocytes % 9.5 %; Mean Corpuscular Hemoglobin 27.7 pg (28.0-33.3); Monocytes # 1.7 K/mcL (0.0-1.3); Monocytes % 7.2 %; Neutrophils # 18.9 K/mcL (1.6-8.9); Platelet Count 390 K/mcL (140-400); Red Blood Count 4.62 M/mcL (3.82-4.97); Red Cell Distribution Width 14.4 % (11.5-14.5); Segmented Neutrophils % 82.4 %; White Blood Count 22.9 K/mcL (4.3-11.1)
[2020-10-26 02:13] LABS: VBG HCO3 16 mEq/L (21-27); VBG PCO2 30 mmHg (41-51); VBG PH 7.32 pH Units (7.32-7.42); VBG PO2 83 mmHg (25-50)
[2020-10-26] MEDS: Insulin LISPRO 300 UNITS/3 ML VIAL SUBQ SCH ×5 (02:15→20:29)
[2020-10-26 02:18] LABS: Estimated Average Glucose 275 mg/dl; Hemoglobin A1C 11.2 %
[2020-10-26 02:20] LABS: Prothrombin Time 11.9 Seconds (9.4-12.1)
[2020-10-26 02:25] LABS: Heparin anti-factor XA UFH 1.16 IU/mL (0.30-0.70)
[2020-10-26 02:27] LABS: Calcium 8.2 mg/dL (8.6-10.3); Potassium 3.6 mEq/L (3.5-5.1)
[2020-10-26 02:34] LABS: Magnesium 2.2 mg/dL (1.6-2.6)
[2020-10-26 02:42] LABS: Thyroid Stimulating Hormone 0.36 mcIU/mL (0.340-5.600)
[2020-10-26] MEDS ORDERED: Ipratropium/Albuterol Neb 3 ML IH PRN (03:26)
[2020-10-26] MEDS: 0.9 % Sodium Chloride 1,000 ML IVC SCH ×3 (03:51→22:15)
[2020-10-26] MEDS: Insulin DETEMIR 100 UNIT/ML X5UNITS SUBQ SCH ×2 (03:52→20:29)
[2020-10-26 05:18] LABS: Bilirubin,Urine Negative (Negative); Blood,Urine Negative (Negative); Clarity,Urine Clear (Clear); Color,Urine Colorless (Yellow); Glucose,Urine (UA) >=1000 mg/dL (Normal); Hyaline Casts,Urine Few per lpf (None Seen); Ketones,Urine >150 mg/dL (Negative); Leukocyte Esterase,Urine Negative (Negative); Mucus,Urine Few per lpf (None-Few); Nitrite,Urine Negative (Negative); PH,Urine 5.5 pH Units (5.0-8.0); Protein,Urine Trace mg/dL (Neg-Trace); RBC,Urine 0-3 per hpf (0-3); Squamous Epithelial Cell,Urine Few per hpf (None-Few); Urobilinogen,Urine Normal (Normal); WBC,Urine 0-3 per hpf (0-3)
[2020-10-26 05:40] LABS: Adenovirus Not Detected (Not Detect); Bordetella Pertussis Not Detected (Not Detect); Chlamydophila pneumoniae Not Detected (Not Detect); Coronavirus 229E Not Detected (Not Detect); Coronavirus HKU1 Not Detected (Not Detect); Coronavirus NL63 Not Detected (Not Detect); Coronavirus OC43 Not Detected (Not Detect); Human Metapneumovirus Not Detected (Not Detect); Human Rhinovirus/Enterovirus Not Detected (Not Detect); Influenza A Subtype 2009 H1 Not Detected (Not Detect); Influenza B Not Detected (Not Detect); Mycoplasma pneumoniae Not Detected (Not Detect); Parainfluenza Virus 1 Not Detected (Not Detect); Parainfluenza Virus 2 Not Detected (Not Detect); Parainfluenza Virus 3 Not Detected (Not Detect); Parainfluenza Virus 4 Not Detected (Not Detect); Respiratory Syncytial Virus Not Detected (Not Detect); SARS-CoV-2 Not Detected (Not Detect)
[2020-10-26] MEDS: lamoTRIgine 100 MG TABLET PO SCH (07:53)
[2020-10-26] MEDS: Gabapentin 100 MG CAPSULE PO SCH ×2 (07:53→19:58)
[2020-10-26 08:41] LABS: Calcium 8.5 mg/dL (8.6-10.3); Potassium 4.1 mEq/L (3.5-5.1)
[2020-10-26] MEDS ORDERED: levoFLOXacin 750 MG/150 ML 750 MG/150 ML BAG IVPB SCH (09:00)
[2020-10-26 17:17] LABS: BUN/Creatinine Ratio 17 (6-26); Blood Urea Nitrogen 17 mg/dL (6-20); Calcium 7.9 mg/dL (8.6-10.3); Carbon Dioxide 16 mEq/L (23-29); Chloride 112 mEq/L (98-107); Glucose 28 mg/dL (70-105); Osmolality,Calculated 284 (280-300); Potassium 3.5 mEq/L (3.5-5.1); Sodium 138 mEq/L (136-145); eGFR For African Americans > 60 (> 60); eGFR For Non-African Americans > 60 (> 60)
[2020-10-26] MEDS: Ondansetron 4 MG/2 ML VIAL IVP PRN (22:56)
[2020-10-27] MEDS: *HR* Dextrose 50 % in Water (Vial) 50 ML VIAL IVP PRN ×2 (01:06→03:45)
[2020-10-27 03:35] LABS: Basophils % 0.1 %; Eosinophils % 0.2 %; Hematocrit 33.2 % (35.3-44.9); Immature Granulocytes % 0.4 % (0-4); Lymphocytes # 2.4 K/mcL (0.6-4.6); Mean Corpuscular HGB Conc 33.1 g/dL (31.6-35.5); Mean Corpuscular Hemoglobin 27.9 pg (28.0-33.3); Mean Corpuscular Volume 84.3 fL (83.0-100.0); Mean Platelet Volume 10.6 fL (9.4-12.4); Monocytes # 1.1 K/mcL (0.0-1.3); Monocytes % 7.9 %; Neutrophils # 9.8 K/mcL (1.6-8.9); Platelet Count 338 K/mcL (140-400); Red Blood Count 3.94 M/mcL (3.82-4.97); Red Cell Distribution Width 14.7 % (11.5-14.5); Segmented Neutrophils % 73.4 %; White Blood Count 13.3 K/mcL (4.3-11.1)
[2020-10-27] MEDS: 0.9 % Sodium Chloride 1,000 ML IVC SCH ×2 (04:01→20:37)
[2020-10-27 04:04] LABS: BUN/Creatinine Ratio 13 (6-26); Blood Urea Nitrogen 10 mg/dL (6-20); Calcium 7.8 mg/dL (8.6-10.3); Carbon Dioxide 20 mEq/L (23-29); Chloride 114 mEq/L (98-107); Glucose 40 mg/dL (70-105); Osmolality,Calculated 286 (280-300); Potassium 3.4 mEq/L (3.5-5.1); Sodium 140 mEq/L (136-145); eGFR For African Americans > 60 (> 60); eGFR For Non-African Americans > 60 (> 60)
[2020-10-27] MEDS: *HR* Heparin 5,000 UNIT/ML VIAL SQ SCH ×3 (05:17→20:39)
[2020-10-27] MEDS: Insulin LISPRO 300 UNITS/3 ML VIAL SUBQ SCH ×4 (07:51→22:44)
[2020-10-27] MEDS: Gabapentin 100 MG CAPSULE PO SCH ×2 (08:23→20:35)
[2020-10-27] MEDS: lamoTRIgine 100 MG TABLET PO SCH (08:24)
[2020-10-27] MEDS: Ondansetron 4 MG/2 ML VIAL IVP PRN (12:52)
[2020-10-27] MEDS ORDERED: Insulin DETEMIR 100 UNIT/ML X5UNITS SUBQ SCH (21:00)
[2020-10-28] MEDS: 0.9 % Sodium Chloride 1,000 ML IVC SCH ×3 (04:02→11:58)
[2020-10-28] MEDS: *HR* Dextrose 50 % in Water (Vial) 50 ML VIAL IVP PRN (06:15)
[2020-10-28] MEDS: *HR* Heparin 5,000 UNIT/ML VIAL SQ SCH ×2 (06:18→15:29)
[2020-10-28] MEDS: Insulin LISPRO 300 UNITS/3 ML VIAL SUBQ SCH ×2 (07:14→12:50)
[2020-10-28 07:46] LABS: Hematocrit 33.5 % (35.3-44.9); Mean Corpuscular HGB Conc 32.8 g/dL (31.6-35.5); Mean Corpuscular Hemoglobin 28.4 pg (28.0-33.3); Mean Corpuscular Volume 86.3 fL (83.0-100.0); Mean Platelet Volume 10.9 fL (9.4-12.4); Monocytes # 0.5 K/mcL (0.0-1.3); Platelet Count 270 K/mcL (140-400); Red Blood Count 3.88 M/mcL (3.82-4.97); Red Cell Distribution Width 14.9 % (11.5-14.5)
[2020-10-28 08:01] LABS: White Blood Count 5.8 K/mcL (4.3-11.1)
[2020-10-28 08:06] LABS: BUN/Creatinine Ratio 7 (6-26); Blood Urea Nitrogen 6 mg/dL (6-20); Calcium 8.3 mg/dL (8.6-10.3); Carbon Dioxide 25 mEq/L (23-29); Chloride 112 mEq/L (98-107); Glucose 84 mg/dL (70-105); Osmolality,Calculated 289 (280-300); Potassium 3.6 mEq/L (3.5-5.1); Sodium 141 mEq/L (136-145); eGFR For African Americans > 60 (> 60); eGFR For Non-African Americans > 60 (> 60)
[2020-10-28 08:34] LABS: Lymphocytes # 3.1 K/mcL (0.6-4.6); Neutrophils # 2.2 K/mcL (1.6-8.9)
[2020-10-28 08:35] LABS: Platelet Estimate Normal (Normal)
[2020-10-28 08:36] LABS: Reactive Lymphocytes Present (Not Present)
[2020-10-28] MEDS: Gabapentin 100 MG CAPSULE PO SCH (09:49)
[2020-10-28] MEDS: lamoTRIgine 100 MG TABLET PO SCH (09:50)
[2020-10-28 15:25] VITALS: BP 117/72; PULSE 87; TEMP 98.7; O2SAT 100
[2020-10-28] MEDS ORDERED: Insulin DETEMIR 100 UNIT/ML X5UNITS SUBQ SCH (21:00)
== END 2020-10-28 16:46 | disposition home or self-care (01) | DRG 720 ==
LOC: 2NNU → SUATTDRO 10-26 01:25 → 3BNU 10-28 10:38
PROVIDERS: ADMIT Student in an Organized Health Care Education/Training Program; ATTEND Internal Medicine

== ENCOUNTER 2020-11-19 22:07 | Observation (INO) ==
[2020-11-20] MEDS ORDERED: Naloxone 0.4 MG/ML INJ IVP PRN (01:25)
[2020-11-20] MEDS ORDERED: Ondansetron 4 MG/2 ML VIAL IVP PRN (01:25)
[2020-11-20] MEDS ORDERED: *HR* Promethazine 25 MG/ML VIAL IM PRN (01:25)
[2020-11-20] MEDS ORDERED: Melatonin 3 MG TABLET PO PRN (01:25)
[2020-11-20] MEDS ORDERED: Acetaminophen 325 MG TABLET PO PRN (01:25)
[2020-11-20] MEDS ORDERED: D5% in 0.45% NACL w KCl 20 MEQ/1,000 ML MLS IVC PRN (01:28)
[2020-11-20] MEDS ORDERED: D5% in 0.45% NACL 1,000 ML IVC PRN (01:28)
[2020-11-20] MEDS ORDERED: *HR* Dextrose 50 % in Water (Vial) 50 ML VIAL IVP PRN (01:28)
[2020-11-20] MEDS ORDERED: 0.45 % Sodium Chloride w/KCl 20 MEQ/1,000 ML MLS IVC SCH (01:30)
[2020-11-20] MEDS ORDERED: D5% in 0.9% NACL w KCl 20 MEQ/1,000 ML MLS IVC SCH (01:30)
[2020-11-20] MEDS ORDERED: D5% in 0.9% NACL w KCl 20 MEQ/1,000 ML MLS IVC PRN (03:05)
[2020-11-20 03:55] LABS: Blood Urea Nitrogen 12 mg/dL (6-20); Carbon Dioxide 13 mEq/L (23-29); Chloride 112 mEq/L (98-107); Glucose 186 mg/dL (70-105); Osmolality,Calculated 297 (280-300); Potassium 4.4 mEq/L (3.5-5.1); Sodium 141 mEq/L (136-145)
[2020-11-20 04:29] LABS: BUN/Creatinine Ratio 13 (6-26); eGFR For African Americans > 60 (> 60); eGFR For Non-African Americans > 60 (> 60)
[2020-11-20 07:16] LABS: VBG HCO3 17 mEq/L (21-27); VBG PCO2 27 mmHg (41-51); VBG PH 7.42 pH Units (7.32-7.42); VBG PO2 103 mmHg (25-50)
[2020-11-20 07:24] LABS: Basophils % 0.2 %; Eosinophils % 0.1 %; Hematocrit 36.3 % (35.3-44.9); Hemoglobin 11.6 g/dL (11.5-15.4); Immature Granulocytes % 0.7 % (0-4); Lymphocytes # 1.4 K/mcL (0.6-4.6); Lymphocytes % 9.9 %; Mean Corpuscular Hemoglobin 27.3 pg (28.0-33.3); Mean Corpuscular Volume 85.4 fL (83.0-100.0); Monocytes # 1.5 K/mcL (0.0-1.3); Monocytes % 10.2 %; Neutrophils # 11.2 K/mcL (1.6-8.9); Platelet Count 333 K/mcL (140-400); Red Blood Count 4.25 M/mcL (3.82-4.97); Red Cell Distribution Width 14.5 % (11.5-14.5); Segmented Neutrophils % 78.9 %; White Blood Count 14.2 K/mcL (4.3-11.1)
[2020-11-20 07:34] LABS: BUN/Creatinine Ratio 10 (6-26); Blood Urea Nitrogen 8 mg/dL (6-20); Carbon Dioxide 18 mEq/L (23-29); Chloride 113 mEq/L (98-107); Glucose 145 mg/dL (70-105); Osmolality,Calculated 291 (280-300); Potassium 3.7 mEq/L (3.5-5.1); Sodium 140 mEq/L (136-145); eGFR For African Americans > 60 (> 60); eGFR For Non-African Americans > 60 (> 60)
[2020-11-20] MEDS ORDERED: Dextrose Gel 15 GM/37.5 ML TUBE PO PRN ×2 (07:43)
[2020-11-20] MEDS: Insulin DETEMIR 100 UNIT/ML X5UNITS SUBQ SCH ×2 (08:09→21:30)
[2020-11-20] MEDS ORDERED: D5% in 0.45% NACL 1,000 ML IVC SCH (11:00)
[2020-11-20 11:59] LABS: BUN/Creatinine Ratio 8 (6-26); Blood Urea Nitrogen 6 mg/dL (6-20); Carbon Dioxide 17 mEq/L (23-29); Chloride 105 mEq/L (98-107); Glucose 247 mg/dL (70-105); Osmolality,Calculated 286 (280-300); Sodium 135 mEq/L (136-145); eGFR For African Americans > 60 (> 60); eGFR For Non-African Americans > 60 (> 60)
[2020-11-20] MEDS: Insulin LISPRO 300 UNITS/3 ML VIAL SUBQ SCH ×2 (12:10→16:00)
[2020-11-20 16:00] LABS: BUN/Creatinine Ratio 7 (6-26); Blood Urea Nitrogen 5 mg/dL (6-20); Calcium 8.8 mg/dL (8.6-10.3); Carbon Dioxide 19 mEq/L (23-29); Chloride 105 mEq/L (98-107); Glucose 135 mg/dL (70-105); Osmolality,Calculated 281 (280-300); Potassium 3.5 mEq/L (3.5-5.1); Sodium 136 mEq/L (136-145); eGFR For African Americans > 60 (> 60); eGFR For Non-African Americans > 60 (> 60)
[2020-11-20 19:38] LABS: BUN/Creatinine Ratio 7 (6-26); Blood Urea Nitrogen 5 mg/dL (6-20); Calcium 8.3 mg/dL (8.6-10.3); Carbon Dioxide 18 mEq/L (23-29); Chloride 105 mEq/L (98-107); Glucose 195 mg/dL (70-105); Osmolality,Calculated 281 (280-300); Potassium 3.8 mEq/L (3.5-5.1); Sodium 134 mEq/L (136-145); eGFR For African Americans > 60 (> 60); eGFR For Non-African Americans > 60 (> 60)
[2020-11-20 23:20] LABS: BUN/Creatinine Ratio 5 (6-26); Blood Urea Nitrogen 4 mg/dL (6-20); Calcium 8.3 mg/dL (8.6-10.3); Carbon Dioxide 18 mEq/L (23-29); Chloride 103 mEq/L (98-107); Glucose 236 mg/dL (70-105); Osmolality,Calculated 283 (280-300); Potassium 3.7 mEq/L (3.5-5.1); Sodium 134 mEq/L (136-145); eGFR For African Americans > 60 (> 60); eGFR For Non-African Americans > 60 (> 60)
[2020-11-21 03:32] VITALS: O2SAT 98
[2020-11-21 05:11] LABS: Hemoglobin 11.9 g/dL (11.5-15.4); Immature Granulocytes % 0.4 % (0-4); Lymphocytes % 22.2 %; Mean Corpuscular HGB Conc 32.2 g/dL (31.6-35.5); Mean Corpuscular Hemoglobin 27.1 pg (28.0-33.3); Mean Corpuscular Volume 84.3 fL (83.0-100.0); Mean Platelet Volume 10.6 fL (9.4-12.4); Monocytes % 10.2 %; Platelet Count 322 K/mcL (140-400); Red Blood Count 4.39 M/mcL (3.82-4.97); Red Cell Distribution Width 14.5 % (11.5-14.5); Segmented Neutrophils % 66.2 %; White Blood Count 7.9 K/mcL (4.3-11.1)
[2020-11-21 05:12] LABS: Basophils % 0.4 %; Eosinophils # 0.1 K/mcL (0.0-0.6); Eosinophils % 0.6 %; Lymphocytes # 1.7 K/mcL (0.6-4.6); Monocytes # 0.8 K/mcL (0.0-1.3); Neutrophils # 5.2 K/mcL (1.6-8.9)
[2020-11-21 05:31] LABS: Magnesium 1.9 mg/dL (1.6-2.6); Phosphorous 1.9 mg/dL (2.7-4.5)
[2020-11-21] MEDS ORDERED: Insulin LISPRO 300 UNITS/3 ML VIAL SUBQ SCH (08:00)
[2020-11-21] MEDS ORDERED: Insulin DETEMIR 100 UNIT/ML X5UNITS SUBQ SCH (09:00)
[2020-11-21] MEDS: Insulin LISPRO 300 UNITS/3 ML VIAL SUBQ SCH (09:25)
[2020-11-21 09:50] VITALS: BP 158/78; PULSE 71; TEMP 98
[2020-11-21 10:16] LABS: BUN/Creatinine Ratio 5 (6-26); Blood Urea Nitrogen 4 mg/dL (6-20); Calcium 8.4 mg/dL (8.6-10.3); Carbon Dioxide 23 mEq/L (23-29); Chloride 103 mEq/L (98-107); Glucose 221 mg/dL (70-105); Osmolality,Calculated 284 (280-300); Potassium 3.3 mEq/L (3.5-5.1); Sodium 135 mEq/L (136-145); eGFR For African Americans > 60 (> 60); eGFR For Non-African Americans > 60 (> 60)
== END 2020-11-21 11:01 | disposition home or self-care (01) ==
LOC: 2NNU → 3ANU 11-20 14:27
PROVIDERS: ADMIT Internal Medicine; ATTEND Internal Medicine

== ENCOUNTER 2021-12-04 16:48 | Observation (INO) ==
[2021-12-04] MEDS ORDERED: Acetaminophen 325 MG TABLET PO PRN (20:13)
[2021-12-04] MEDS ORDERED: Naloxone 0.4 MG/ML INJ IVP PRN (20:13)
[2021-12-04] MEDS ORDERED: Ondansetron 4 MG/2 ML VIAL IVP PRN (20:13)
[2021-12-04] MEDS ORDERED: *HR* Dextrose 50 % in Water (Syg) 50 ML SYRINGE IVP PRN (20:22)
[2021-12-04] MEDS ORDERED: D5% in Water 1,000 ML IVC PRN (20:22)
[2021-12-04] MEDS ORDERED: Dextrose Gel 15 GM/37.5 ML TUBE PO PRN ×2 (20:22)
[2021-12-04] MEDS: Insulin LISPRO 300 UNITS/3 ML VIAL SUBQ SCH (21:57)
[2021-12-04 22:01] LABS: Bacteria,Urine Few per hpf (None-Few); Bilirubin,Urine Negative (Negative); Blood,Urine Small (Negative); Clarity,Urine Clear (Clear); Color,Urine Light-Yellow (Yellow); Glucose,Urine (UA) 300 mg/dL (Normal); Ketones,Urine 60 mg/dL (Negative); Leukocyte Esterase,Urine Trace (Negative); Mucus,Urine Few per lpf (None-Few); Nitrite,Urine Negative (Negative); Protein,Urine >=300 mg/dL (Neg-Trace); RBC,Urine 0-3 per hpf (0-3); Specific Gravity,Urine 1.022 (1.010-1.025); Squamous Epithelial Cell,Urine Moderate per hpf (None-Few); Urobilinogen,Urine Normal (Normal)
[2021-12-04 22:08] LABS: Amphetamine Screen,Urine Negative ng/mL (Cutoff=1000); Barbiturate Screen,Urine Negative ng/mL (Cutoff=200); Benzodiazepines Screen,Urine Negative ng/mL (Cutoff=200); Cannabinoid Screen,Urine Positive ng/mL (Cutoff = 50); Cocaine Screen,Urine Negative ng/mL (Cutoff= 300); Opiate Screen,Urine Negative ng/mL (Cutoff=300); Phencyclidine Screen,Urine Negative ng/mL (Cutoff=25)
[2021-12-04] MEDS ORDERED: NON-FORMULARY MEDICATION 1 EACH EACH (Insulin Degludec [Tresiba Flextouch U-200] 200 UNIT/ SQ SCH (22:15)
[2021-12-04] MEDS: Metoprolol XL (24 HR) Succ 50 MG TAB.ER.24H PO SCH (22:39)
[2021-12-04] MEDS: Gabapentin 300 MG CAPSULE PO SCH (22:39)
[2021-12-04] MEDS: lamoTRIgine 100 MG TABLET PO SCH (22:40)
[2021-12-04] MEDS ORDERED: Insulin DETEMIR 100 UNIT/ML X5UNITS SUBQ SCH (22:45)
[2021-12-04] MEDS: Insulin DETEMIR 100 UNIT/ML X5UNITS SUBQ SCH (23:36)
[2021-12-05 01:22] LABS: Creatinine,Urine 132 mg/dL; Protein/Creatinine Ratio,Urine 1.86 mg/mg (0.00-0.20)
[2021-12-05 06:18] LABS: Basophils # 0.1 K/mcL (0.0-0.2); Basophils % 0.6 %; Eosinophils # 0.1 K/mcL (0.0-0.6); Eosinophils % 0.6 %; Hematocrit 39.2 % (35.3-44.9); Hemoglobin 12.7 g/dL (11.5-15.4); Immature Granulocytes % 0.4 % (0-4); Lymphocytes # 1.6 K/mcL (0.6-4.6); Lymphocytes % 12.3 %; Mean Corpuscular HGB Conc 32.4 g/dL (31.6-35.5); Mean Corpuscular Hemoglobin 27.5 pg (28.0-33.3); Mean Platelet Volume 10.8 fL (9.4-12.4); Monocytes # 0.8 K/mcL (0.0-1.3); Monocytes % 6.5 %; Neutrophils # 10.1 K/mcL (1.6-8.9); Platelet Count 294 K/mcL (140-400); Red Blood Count 4.61 M/mcL (3.82-4.97); Red Cell Distribution Width 16.3 % (11.5-14.5); Segmented Neutrophils % 79.6 %; White Blood Count 12.7 K/mcL (4.3-11.1)
[2021-12-05 06:39] LABS: Calcium 8.8 mg/dL (8.6-10.3); Chol/HDL Ratio 2.5 (0-4.9); Magnesium 1.7 mg/dL (1.6-2.6); Phosphorous 2.7 mg/dL (2.7-4.5); Potassium 4.1 mEq/L (3.5-5.1)
[2021-12-05 06:42] LABS: Albumin 3.7 g/dL (3.5-5.7); Albumin/Globulin Ratio 1.5 (1.1-2.2); Bilirubin,Direct 0.1 mg/dL (0.0-0.2); Bilirubin,Indirect 0.6 mg/dL (0.0-1.0); Bilirubin,Total 0.7 mg/dL (0.3-1.0); Globulin 2.5 g/dL (2.4-3.5); Total Protein 6.2 g/dL (6.4-8.9)
[2021-12-05 06:51] LABS: Thyroid Stimulating Hormone 0.624 mcIU/mL (0.340-5.600)
[2021-12-05] MEDS: Gabapentin 300 MG CAPSULE PO SCH ×2 (08:11→21:34)
[2021-12-05] MEDS: Aspirin Enteric Coated 81 MG Tablet PO SCH (08:11)
[2021-12-05] MEDS: Insulin DETEMIR 100 UNIT/ML X5UNITS SUBQ SCH ×2 (08:12→19:48)
[2021-12-05] MEDS: Insulin LISPRO 300 UNITS/3 ML VIAL SUBQ SCH ×3 (08:20→17:35)
[2021-12-05] MEDS: Metoprolol XL (24 HR) Succ 50 MG TAB.ER.24H PO SCH ×2 (10:53→21:34)
[2021-12-05] MEDS: lamoTRIgine 100 MG TABLET PO SCH (21:34)
[2021-12-06] MEDS ORDERED: Regadenoson 0.4 MG/5 ML SYRINGE IVP ONE (06:18)
[2021-12-06] MEDS: Metoprolol XL (24 HR) Succ 50 MG TAB.ER.24H PO SCH (09:56)
[2021-12-06] MEDS: Insulin LISPRO 300 UNITS/3 ML VIAL SUBQ SCH ×2 (09:56→11:57)
[2021-12-06] MEDS: Aspirin Enteric Coated 81 MG Tablet PO SCH (09:56)
[2021-12-06] MEDS: Gabapentin 300 MG CAPSULE PO SCH (09:56)
[2021-12-06] MEDS: Insulin DETEMIR 100 UNIT/ML X5UNITS SUBQ SCH (10:02)
[2021-12-06 11:36] VITALS: BP 161/90; PULSE 88; TEMP 98.5; O2SAT 99
== END 2021-12-06 13:07 | disposition home or self-care (01) ==
LOC: 3BNU
PROVIDERS: ADMIT Internal Medicine; ATTEND Internal Medicine